=== PATIENT | male | born 2000 | race Caucasian/White ===

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

== ENCOUNTER 2022-04-07 16:55 | Emergency (ER) | payer MEDICAID ==
[2022-04-07 17:10] VITALS: O2SAT 97
[2022-04-07 18:24] VITALS: BP 112/78; PULSE 81
--- NOTE | 2022-04-07 18:24 | ERPHSYRPT ---
- History of Present Illness Time Seen by Provider: 04/07/22 16:58 Source: patient Exam Limitations: no limitations Patient Subjective Stated Complaint: wax build up in left ear more than right which is causing hard of hearing, pain in ears and jaw Triage Nursing Assessment: Pt brought to the ER by his mother, steven justice, rates pain as 4/10, denies any drainage from ear, wax build up causing hard of hearing and pain, no other issues at this time Physician History: 21 years old presented in the ER with bilateral ear wax buildup with decreased hearing and dull aching mild to moderate pain without any significant agg ravating or relieving factors. No ear discharge. No fever or chills reported. Timing/Duration: weeks Severity: mild, moderate ENT Location: ear (R), ear (L) Prearrival Treatment: over the counter meds Modifying Factors: Improves With: nothing Associated Symptoms: ear pain (R), ear pain (L) Allergies/Adverse Reactions: No Known Drug Allergies Allergy (Verified 04/07/22 17:10) Home Medications: No Reportable Medications [No Reported Medications] 04/07/22 [History] Hx Tetanus, Diphtheria Vaccination/Date Given: No Hx Influenza Vaccination/Date Given: No Hx Pneumococcal Vaccination/Date Given: No Travel Risk - International Travel Have you traveled outside of the country in past 3 weeks: No - Coronavirus Screening Are you exhibiting any of the following symptoms?: No Close contact with a COVID-19 positive Pt in past 14-21 Days: No - Vaccine Status Have you recieved a Covid-19 vaccination: Yes 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[employer] - Vaccination Dates Date of 2cond Vaccination (if applicable): hasn't received - Review of Systems Constitutional: No Symptoms Eyes: No Symptoms Ears, Nose, & Throat: Ear Pain, Hearing Changes Respiratory: No Symptoms Cardiac: No Symptoms Genitourinary Symptoms: No Symptoms Musculoskeletal: No Symptoms Skin: No Symptoms Neurological: Sensory Changes Psychological: No Symptoms Hematologic/Lymphatic: No Symptoms - Past Medical History Pertinent Past Medical History: No Neurological History: No Pertinent History ENT History: No Pertinent History Cardiac History: No Pertinent History Respiratory History: No Pertinent History Endocrine Medical History: No Pertinent History Musculoskeletal History: No Pertinent History GI Medical History: No Pertinent History History: No Pertinent History Psycho-Social History: No Pertinent History Male Reproductive Disorders: No Pertinent History - Past Surgical History Past Surgical History: No Neuro Surgical History: No Pertinent History Cardiac: No Pertinent History Respiratory: No Pertinent History Gastrointestinal: No Pertinent History Genitourinary: No Pertinent History Musculoskeletal: No Pertinent History Male Surgical History: No Pertinent History - Social History Smoking Status: Former smoker Exposure to second hand smoke: No Drug Use: marijuana Patient Lives Alone: No Significant Family History: no pertinent family hx - Nursing Vital Signs Nursing Vital Signs: Initial Vital Signs Temperature 98.0 F 04/07/22 17:00 Pulse Rate 85 04/07/22 17:00 Blood Pressure 125/81 04/07/22 17:00 O2 Sat by Pulse Oximetry 97 04/07/22 17:00 Pain Scale Pain Intensity 4 - Physical Exam General Appearance: no apparent distress, alert Eye Exam: bilateral eye: normal inspection, PERRL, EOMI Ear Exam: bilateral ear: auricle normal, other (Bilateral impacted wax. No mastoid tenderness.) Nasal Exam: normal inspection Throat Exam: normal, pharynx normal Neck Exam: normal inspection, non-tender, supple, full range of motion, trachea midline Cardiovascular/Respiratory Exam: normal breath sounds, regular rate/rhythm Neurologic Exam: alert, oriented x 3, cooperative, lead scientist II-XII nml as tested Skin Exam: normal color SpO2 Interpretation: normal SpO2: 97 O2 Delivery: Room Air - Progress Progress: improved Progress Note: 04/07/22 18:22 Bilateral ear irrigation was done with removal of wax and good TM visibility with out any signs of otitis media or externa. Counseled pt/family regarding: diagnosis, need for follow-up - Departure Departure Disposition: Home Clinical Impression: Impacted cerumen, bilateral Condition: Stable Critical Care Time: No Referrals: DOCTOR,NO FAMILY [Primary Care Provider] - Follow up/PCP as directed ANTHONY LANDRY [ACTIVE STAFF] - Follow Up with PCP/3 days Instructions: Ear Wax Impaction (DC) Additional Instructions: Do not use Q-tips. Take Tylenol/ibuprofen as needed. Follow-up with primary care physician for reevaluation. Return to ER for any worsening pain, discharge, decreased hearing, fever chills etc.
== END 2022-04-07 18:38 | disposition home or self-care (01) ==
LOC: ED 16:55
DX: H61.23 Impacted cerumen, bilateral (principal); H92.03 Otalgia, bilateral
CPT/HCPCS: 99283